=== PATIENT | male | born 1945 | race Caucasian/White ===

== ENCOUNTER 2017-12-29 09:49 | Inpatient (IN) | payer MEDICARE ==
[~2017-12-29] VITALS: Ht 187.9 cm; Wt 84.1 kg
--- NOTE | ~2017-12-29 | PROC NOTE ---
[place], [place] PROCEDURE NOTE NAME: TAMICA SANTOS JR [facility] #: [id number] UNIT #: [id number] ROOM: 407 DOCTOR: AMANDA LE MD,SHAHLA BIRTHDATE: [birth year] DOS: 12/30/2017 PROCEDURE: Left-sided thoracentesis ultrasound guidance. POSTOPERATIVE DIAGNOSIS: Left-sided thoracentesis ultrasound guidance. COMPLICATIONS: None. PROCEDURE DESCRIPTION: Informed consent was obtained for the patient. The fluid was already marked for the site of thoracentesis in the left lower posterior chest wall. Skin was cleaned out with chlorhexidine solution. After that, sterile field was achieved. A 1% lidocaine was administered in the skin intercostal space during administration of local anesthetic. Left pleural fluid was entered with a small bore needle. Small fluid was aspirated. After that, small incision was given in the skin. The [place] thoracentesis catheter was introduced through the incision into the left pleural space. Initial fluid drainage for the patient was taken about 30 mL in the syringe. Additional of 70-80 mL fluid, which appeared to be mildly hemorrhagic was removed without difficulty. The post-thoracentesis ultrasound of the chest shows remaining pleural fluid appeared to be loculated and not resolved. Chest x-ray done postprocedure did confirm the finding with only small improvement in the aeration of the lung were noted in the left mid lung. There was no evidence of pneumothorax. Analysis of the pleural fluid reviewed later shows pH of 7.04. The cell differential was noted with WBC is 477, 53% neutrophils, 39% lymphocytes. Glucose of 79, total protein 4.6. LDH of 202. Cholesterol 100. Albumin 1.9, all noted with a strong as an exudative effusion, possibility of infection or malignancy would be considered. The patient will be recommended about transfer to another facility for patient further assess the patient with VATS procedure to more accurately identify the proper patient and to be treated accordingly. The patient needs could not be met in this hospital. I discussed the case with Dr. Carli Bradshaw, who will speak to the patient. The patient prefers transfer and if he agreeable to that. SHAHLA PATEL MD CM:PROCNOTE:PROCEDURE NOTE [id number] SHAHLA LE MD
--- NOTE | ~2017-12-29 | CON ---
[place], [place] REPORT OF CONSULTATION NAME: TAMICA SANTOS JR [facility] #: [id number] UNIT #: [id number] ROOM: 407 DOCTOR: SHAHLA CAMPOS MD BIRTHDATE: [birth year] DOS: 12/30/2017 REASON FOR CONSULTATION: Assess the patient's current pleural effusion. HISTORY OF PRESENT ILLNESS: This is a 72-year-old male who has been noted ill for the couple of months. The patient's symptoms have been noted not improving with [id number] medications, presented to the Emergency Room, in hospital on 12/29/2017. The patient has been noted symptoms of chills and fever as well as coughing. The symptoms have been noted progressive worsening for this patient. He was noted general weakness and fatigue. The patient denies any symptoms of hemoptysis. The patient does complain of pain, which described moderate to severe in the left side of the chest, worsened with deep inspiratory effort. The patient denies any symptoms of significant wheezing, but mild wheezing was reported. REVIEW OF SYSTEMS: Remaining systems were reviewed and noted as follows; CONSTITUTIONAL: Fatigue and tiredness noted with possibility of fever at home, not checked by the patient, but chills were reported. EYES: Denies any burning, redness, tenderness. EARS, NOSE, AND THROAT: No sore throat, hoarseness, otalgia, postnasal drainage or epistaxis. CARDIOVASCULAR: Denies anginal pain, edema, pain in the lower extremities. GASTROINTESTINAL: Dysphagia, nausea, vomiting, diarrhea, abdominal pain, hematemesis, melena, hematochezia, and abnormal weight loss. SKIN: Denies any abnormal lesions or rashes. GENITOURINARY SYMPTOMS: Dysuria, suprapubic pain, hematuria. CENTRAL NERVOUS SYSTEM: No dizziness, headache, diplopia, syncopal episodes. Remaining systems were reviewed, they were noted all negative. PAST MEDICAL HISTORY: Reported for this patient is history of, 1. Essential hypertension. 2. Obstructive sleep apnea disorder. 3. Hyperlipidemia. PAST SURGICAL HISTORY: None reported. SOCIAL HISTORY: The patient stated he is , has one child. Nonsmoker lifetime. No history of alcohol or illicit drug use. Occupation related pulmonary exposure. FAMILY HISTORY: The patient's father at the age of 7070 years old with complication of infection and measles. The mother at the age of 8282 years old, complication of advanced Alzheimer dementia. MEDICATIONS: Medication which currently administered for the patient were noted as use of Mucinex, vancomycin, IV Zosyn, Levaquin, and other medications. DRUG ALLERGIES: The patient noted as no known drug allergies. [place], [place] REPORT OF CONSULTATION NAME: TAMICA SANTOS JR UNIT #: [id number] ROOM: 407 DOCTOR: AMANDA LE MD,SHAHLA BIRTHDATE: [birth year] PHYSICAL EXAMINATION: GENERAL: A 52-[id number]-egk white female rather who has been noted currently awake and alert without distress. Height of 6 feet and 2 inches, weight of 185 pounds, and BMI 23.8. VITAL SIGNS: Temperature noted 100.9 degree Fahrenheit, low grade fever. The respiratory recorded at 18-20, heart rate of 88, blood pressure is 135/74 and 114/64. Pulse oxygen saturation noted on 2 liters nasal cannula was 93% saturation. Room air on admission was 91% saturation. HEENT: Head was atraumatic. Eyes, nonicterus. NECK: Supple. CARDIOVASCULAR: S1, S2 audible. LUNGS: The patient was noted with absent breath sounds noted in the left chest. The right lung was clear. There were no crackles or wheezing. ABDOMEN: Soft, flat, nontender. EXTREMITIES: Without any acute edema. CENTRAL NERVOUS SYSTEM: Intact without any focal deficit. Cranial nerves were noted 2-12 intact. SKIN: Visible no lesions or rashes. MUSCULOSKELETAL: Without any acute deformities. LABORATORY DATA: CMP on admission yesterday noted normal BUN and creatinine and sodium 135. C-reactive protein was elevated at 18.0. PT/INR for the patient was noted as normal. PTT was normal. The troponin, which was done for the patient 3 sets in the last 24 hours, normal influenza A and B and nasal washing antigen test negative yesterday. CBC this morning WBC count 13.7, hemoglobin 10.5, hematocrit 33.0, and platelet count of 416,000. A 81% segmented neutrophils noted. CMP for the patient's glucose 122, BUN normal, and creatinine was normal. CBC that was done yesterday on admission; WBC count 15.4, hemoglobin 12.4, hematocrit 38.7, and platelet count was noted as 451,000. The chest x-ray that was done yesterday shows opacification in the left lower lung, possibility of pleural fluid with area of infiltration atelectasis combination. CT scan of chest, which was done without contrast yesterday were reviewed with the patient shows loculated pleural fluid was noted for this patient with a nodular density adjacent to the heart was also noted with a size of 6.3 x 6.5 x 1.5 cm in size. IMPRESSION: 1. The patient was being currently noted with possibility of suspected acute pneumonia with a complicated pleural fluid, very likely. Loculated pleural fluid was a density for the patient rule out any mass or lesion in the left lung as well. There was no past history of tobacco use. The patient has been noted acutely ill for the past several weeks intermittently, most likely developed pneumonia, which was not completely treated, but partially treated. He was also reported with symptoms of flu, which was treated outpatient with postviral pneumonia could also developed. 2. History of essential hypertension. PLAN OF THERAPY: The patient has been assessed. Ultrasound for the patient with pocket of fluid noted in the left lower chest, which was marked and thoracentesis will be performed. The patient was agreeable for thoracentesis. [place], [place] REPORT OF CONSULTATION NAME: [facility]AIRE[facility]AMICA [id number] UNIT #: [id number] ROOM: 407 DOCTOR: SHAHLA CAMPOS MD BIRTHDATE: [birth year] He has been getting multiple broad spectrum intravenous antibiotic. The spectrum antibiotic will be decreased based on the culture results review once available. Ordered the urine for legionella antigen for this patient as well as strep pneumo antigen. Other supportive therapy, plan of management care and therapies. SHAHLA PATEL MD CM:CONSTR:REPORT OF CONSULTATION 1330 12/30/17 1739 interface
--- NOTE | ~2017-12-29 | PR ---
[place], [place] PROGRESS NOTE NAME: TAMICA SANTOS JR [facility] #: [id number] UNIT #: [id number] ROOM: 407 DOCTOR: AMANDA LE MDSHAHLA BIRTHDATE: [birth year] DOS: 12/31/2017 SUBJECTIVE: The patient was continued on the intravenous antibiotic. The thoracentesis done yesterday of the patient and the incomplete resolution of the pleural fluid removed. He has also completed a CT scan of the abdomen and pelvis that was done yesterday ordered by the primary care attending. It still shows evidence of loculated pleural fluid. It was still noted for the patient in the left lower lung with limited images taken of the CT thorax part. The patient denies any symptoms of hemoptysis. The patient does have symptoms of chest pain on the left side, which has been treated with the pain medication. Denies symptoms of nausea, vomiting, diarrhea, dizziness, headache, general weakness, and fatigue still persisted. He has been recommended about transfer to another hospital. The patient requiring the VATS procedure for patient further assessment. The patient refused to do so. He would like to be continued on antibiotics. Remaining systems were reviewed. They were noted normal. PHYSICAL EXAMINATION: VITAL SIGNS: For the patient showed normal temperature, respiratory rate 18, and this morning heart rate 82, and blood pressure 122/80. HEENT: Examination shows head was atraumatic. Eyes nonicterus. NECK: Supple. CARDIOVASCULAR: S1, S2 was audible. LUNGS: The patient was noted without any wheezing or crackles noted on the right side. Decreased breath sounds still noted on the left side of the chest previously. There were no crackles. ABDOMEN: Soft and nontender. Bowel sounds present. SKIN: No lesions or rashes. MUSCULOSKELETAL: Without any acute deformities. CENTRAL NERVOUS SYSTEM: Cranial nerves 2-12 intact. No focal deficit. LABORATORY DATA: The patient's CBC today: WBC count 13.2, hemoglobin 10.9, hematocrit 34.1, and platelet count 427,000. The BMP for the patient noted as glucose 109, BUN and creatinine normal, and sodium 135. Vancomycin trough level 10.5. Cultures of the pleural fluid, no bacterial growth. Sputum Gram stain yesterday, many white blood cells, many gram-positive cocci in pairs, chains and clusters, few gram-negative diplococci pending results of the culture preliminarily reported as normal waldemar. Analysis of pleural fluid; WBC count 477 with 59% neutrophils, 39% lymphocytes, and 1% eosinophils. Glucose of 79, total protein 4.6, LDH 202, cholesterol of 101, triglycerides 61, amylase of 28, and albumin of 1.9. The analysis of the pleural fluid was noted positively for strong and exudative effusion. The pH for the patient's pleural fluid noted 7.04 which was also decreased. The chest x-ray post-procedure still shows persistent loculated pleural fluid. IMPRESSION: 1. Multiloculated pleural fluid in the left side most likely related to acute pneumonia, rule out malignancy in the left hemithorax as well. The patient's temperature was noted normal. [place], [place] PROGRESS NOTE NAME: TAMICA SANTOS JR UNIT #: [id number] ROOM: [facility] DOCTOR: AMANDA LE MD,SHAHLA BIRTHDATE: [birth year] 2. Aura debility secondary to current illness. PLAN OF MANAGEMENT: I have a detailed discussion with the patient about the need of getting surgical intervention to be done for the patient for further assessment. After discussion of the patient, the patient is agreeable to be transferred to another hospital. He choose to go to [facility] for further medical management. The patient most likely will require the VATS procedure on the left side for more effective assessment. For the current loculated pleural fluid, the possibility of acute pneumonia, rule out malignancy in the left hemithorax. In the meantime, continue the pain management as ordered and other therapy, plan of management. Continue broad spectrum intravenous antibiotics; however, the ____ antibiotic will be done after the final cultures of the blood available. I have also discussed the case with the patient with Dr. Carli Bradshaw for the patient. Arrangements made for the patient for transfer to [facility]. The past family, social, surgical history of the patient are reviewed remains unchanged since my consultation of 12/31/2017. SHAHLA PATEL MD CM:PNTRANS [id number] SHAHLA LE MD 12/31/172055 interface
[2017-12-29 09:50] VITALS: BP 141/76
[2017-12-29 10:28] LABS: BASO # 0.1 10*3/uL (0.0-0.1); BASO % 0.3 % (0.0-1.0); EOS # 0.2 10*3/uL (0.0-0.4); HEMATOCRIT 38.7 % (42.0-52.0); HEMOGLOBIN 12.4 g/dl (14.0-18.0); LYMPH # 1.7 10*3/uL (1.3-4.4); LYMPH % 10.8 % (27.0-41.0); MEAN CELL VOLUME 94.4 fl (80.0-94.0); MEAN CORPUSCULAR HGB 30.2 pg (27.0-31.0); MEAN PLATELET VOLUME 9.8 fl (9.6-12.3); MONO # 1.4 10*3/uL (0.1-1.0); NEUT # 12.1 10*3/uL (2.3-7.9); NEUT % 78.4 % (47.0-73.0); PLATELET COUNT AUTOMATED 451 10*3/uL (130-400); RED CELL DISTRI WIDTH 12.4 % (0-14.5); WHITE BLOOD COUNT 15.4 10*3/uL (4.8-10.8)
[2017-12-29 10:42] LABS: ALBUMIN 2.7 gm/dl (3.1-4.5); ALKALINE PHOSPHATASE 126 U/L (45-117); BUN 13 mg/dl (7-24); CHLORIDE 99 mmol/L (98-107); CREATININE 0.94 mg/dL (0.70-1.30); LIPASE 133 U/L (73-393); POTASSIUM 4.1 mmol/L (3.5-5.1); SGOT/AST 21 IU/L (3-35); SGPT/ALT 35 U/L (12-78); SODIUM 135 mmol/L (136-145); TOTAL PROTEIN 7.9 gm/dL (6.4-8.2)
[2017-12-29 10:46] LABS: TROPONIN I < 0.015 ng/ml (<0.045)
[2017-12-29 10:59] LABS: ACT PARTIAL THROMBO TIME 27.8 SECONDS (20.8-31.5); INTERNATIONAL NORM RATIO 1.1 (2.0-3.5)
[2017-12-29 11:50] VITALS: BP 154/80
[2017-12-29 12:00] VITALS: BP 154/90
[2017-12-29 16:00] VITALS: BP 127/61
[2017-12-29] MEDS ORDERED: MELATONIN1 MG PO (19:12)
[2017-12-29 20:00] VITALS: BP 135/74
[2017-12-30] VITALS: BP 116/58
[2017-12-30 07:13] LABS: BASO % 0.3 % (0.0-1.0); EOS # 0.1 10*3/uL (0.0-0.4); EOS % 0.9 % (1.0-4.0); HEMOGLOBIN 10.5 g/dl (14.0-18.0); LYMPH # 1.1 10*3/uL (1.3-4.4); LYMPH % 7.6 % (27.0-41.0); MEAN CELL VOLUME 94.6 fl (80.0-94.0); MEAN CORPUSCULAR HGB 30.1 pg (27.0-31.0); MEAN CORPUSCULAR HGB CONC 31.8 g/dl (33.0-37.0); MEAN PLATELET VOLUME 9.9 fl (9.6-12.3); MONO # 1.2 10*3/uL (0.1-1.0); MONO % 8.7 % (3.0-9.0); NEUT # 11.2 10*3/uL (2.3-7.9); NEUT % 81.9 % (47.0-73.0); PLATELET COUNT AUTOMATED 416 10*3/uL (130-400); RED BLOOD COUNT 3.49 10*6/uL (4.50-5.90); RED CELL DISTRI WIDTH 12.5 % (0-14.5); WHITE BLOOD COUNT 13.7 10*3/uL (4.8-10.8)
[2017-12-30 07:30] LABS: ALBUMIN 2.1 gm/dl (3.1-4.5); BUN 13 mg/dl (7-24); CHLORIDE 101 mmol/L (98-107); POTASSIUM 3.8 mmol/L (3.5-5.1); SODIUM 136 mmol/L (136-145)
[2017-12-30 07:39] LABS: ALKALINE PHOSPHATASE 119 U/L (45-117); CHOLESTEROL 124 mg/dL (<200); HDL CHOLESTEROL 24 mg/dl (40-60); LDL CHOLESTEROL 81 mg/dL (9-159); PHOSPHOROUS 2.9 mg/dL (2.5-4.9); SGOT/AST 35 IU/L (3-35); SGPT/ALT 39 U/L (12-78); TOTAL PROTEIN 6.7 gm/dL (6.4-8.2); TRIGLYCERIDES 95 mg/dl (<150); VLDL CHOLESTEROL 19 mg/dL (6-40)
[2017-12-30 08:00] VITALS: BP 114/64
[2017-12-30 08:28] LABS: VITAMIN D, 25-HYDROXY 23.1 ng/mL (30-100)
[2017-12-30 10:37] LABS: BODY FLUID WBC 477 /uL
[2017-12-30 11:17] LABS: BF LYMPHOCYTES 39 %; BF MACROPHAGES 7 %; BF NEUTROPHILS 53 %
[2017-12-30 12:00] VITALS: BP 132/68
[2017-12-30 16:00] VITALS: BP 124/67
[2017-12-30 20:00] VITALS: BP 117/65
[2017-12-31] VITALS: BP 100/42; BP 164/89
[2017-12-31 07:20] LABS: BASO # 0.1 10*3/uL (0.0-0.1); BASO % 0.4 % (0.0-1.0); EOS # 0.4 10*3/uL (0.0-0.4); EOS % 3.2 % (1.0-4.0); HEMATOCRIT 34.1 % (42.0-52.0); HEMOGLOBIN 10.9 g/dl (14.0-18.0); LYMPH # 1.7 10*3/uL (1.3-4.4); LYMPH % 12.5 % (27.0-41.0); MEAN CELL VOLUME 95.3 fl (80.0-94.0); MEAN CORPUSCULAR HGB 30.4 pg (27.0-31.0); MEAN PLATELET VOLUME 9.9 fl (9.6-12.3); MONO # 1.2 10*3/uL (0.1-1.0); MONO % 9.3 % (3.0-9.0); NEUT # 9.8 10*3/uL (2.3-7.9); NEUT % 73.8 % (47.0-73.0); PLATELET COUNT AUTOMATED 427 10*3/uL (130-400); RED BLOOD COUNT 3.58 10*6/uL (4.50-5.90); RED CELL DISTRI WIDTH 12.7 % (0-14.5); WHITE BLOOD COUNT 13.2 10*3/uL (4.8-10.8)
[2017-12-31 07:32] LABS: BUN 11 mg/dl (7-24); CHLORIDE 99 mmol/L (98-107); CREATININE 0.89 mg/dL (0.70-1.30); POTASSIUM 3.9 mmol/L (3.5-5.1); SODIUM 135 mmol/L (136-145)
[2017-12-31 08:00] VITALS: BP 122/80
[2017-12-31 12:00] VITALS: BP 122/78
[2017-12-31] MEDS ORDERED: FUROSEMIDE10 MG/1 M1 IV (14:30)
[2017-12-31] MEDS ORDERED: ENOXAPARIN40 MG/0.2 SC (14:30)
[2017-12-31] MEDS ORDERED: VITAMIN D-32000 UNIT PO (14:30)
[2017-12-31] MEDS ORDERED: DUONEB 3 MG/3 ML3 M1 NEB (14:30)
[2017-12-31] MEDS ORDERED: ZOSYN 3.373.375 GM/5 IV (14:30)
[2017-12-31] MEDS ORDERED: MUCINEX ER600 MG PO (14:30)
[2017-12-31 16:00] VITALS: BP 129/69
== END 2017-12-31 19:52 | disposition short-term general hospital (02) | DRG 871 ==
LOC: ED 09:49 → 4E 11:19 → EDHOLD 11:19 → 4E 11:29
PROVIDERS: Emergency Medicine; Internal Medicine Critical Care Medicine; Internal Medicine Nephrology
PROC: 0W9B3ZZ Drainage of Left Pleural Cavity, Percutaneous Approach (ICD-10-PCS; principal; 2017-12-30)
DX: A41.9 Sepsis, unspecified organism (principal); J18.9 Pneumonia, unspecified organism; E43 Unspecified severe protein-calorie malnutrition; J90 Pleural effusion, not elsewhere classified; D53.9 Nutritional anemia, unspecified; E87.1 Hypo-osmolality and hyponatremia; E83.41 Hypermagnesemia; D47.3 Essential (hemorrhagic) thrombocythemia; D72.821 Monocytosis (symptomatic); G47.33 Obstructive sleep apnea (adult) (pediatric); E78.5 Hyperlipidemia, unspecified; I10 Essential (primary) hypertension; Z81.8 Family history of other mental and behavioral disorders; Z68.23 Body mass index [BMI] 23.0-23.9, adult